=== PATIENT | male | born 1935 | race Caucasian/White ===

== ENCOUNTER 2017-09-10 19:24 | Inpatient (IN) | payer OTHER, MEDICARE ==
[2017-09-10] MEDS ORDERED: NS 1,000 ML IV ONE (19:31)
--- NOTE | 2017-09-10 20:02 | CPEKG ---
Heart Rate: 97 RR Interval: 619 P-R Interval: 164 QRSD Interval: 80 QT Interval: 352 QTC Interval: 447 P [place]: 8 QRS [place]: -14 EKG Severity - ABNORMAL ECG - EKG Impression: SINUS RHYTHM EKG Impression: LEFT ATRIAL ABNORMALITY EKG Impression: PROBABLE INFERIOR INFARCT, AGE INDETERMINATE EKG Impression: CONSIDER ANTERIOR INFARCT EKG Impression: LATERAL LEADS ARE ALSO INVOLVED Electronically Signed By: Mary Vasques 10-Sep-2017 23:37:29
[2017-09-10 20:05] LABS: PLATELET COUNT 175 10^3/uL (150-400)
--- NOTE | 2017-09-10 20:05 | EDPHY ---
H & P Time Seen by Provider: 09/10/17 19:30 HPI/ROS: HPI Progressive weakness. 81-year-old male by ambulance from his home. This patient has a history of inclusion body myositis. A call his primary care physician Larry. He has been getting progressively more weak over the last month. He is now essentially bed-bound. He has been treated with various immune suppressants and immune modulators. He denies any specific complaint other than to say that he has been getting much more weak over the last several days. He is primarily managed by Dr. Ronald Almendarez of the neurology service. ROS: Constitutional: No fever, no chills. As above. Eyes: No discharge. No changes in vision. ENT: No sore throat. No nasal congestion or rhinorrhea. Respiratory: No cough. No shortness of breath. Cardiac: No chest pain, no palpitations. Gastrointestinal: No abdominal pain, no vomiting, no diarrhea. Genitourinary: No hematuria. No dysuria or increased frequency with urination. Musculoskeletal: No back pain. No neck pain. No myalgias or arthralgias. Skin: No rashes. Neurological: No headache. No focal weakness or altered sensation. Past medical history: As above. Social history: He lives with his son in a triplex. Nonsmoker. No alcohol. Physical Exam: General Appearance: Alert, no distress. This patient is responding to questions appropriately and in full sentences. He is then but generally appears well-hydrated and well-nourished. Eyes: Pupils equal and round no pallor or injection. No lid edema, erythema or injection. ENT, Mouth: Mucous membranes are moist. The pharyngeal tissues are unremarkable. No edema or swelling. No asymmetry suggestive of abscess. No erythema or exudates. Respiratory: There are no retractions, lungs are clear to auscultation with good air movement bilaterally. Cardiovascular: Regular rate and rhythm. No murmur. Gastrointestinal: Abdomen is soft and nontender, no masses, bowel sounds normal. No focal tenderness at McBurney's point. No Belle sign. Neurological: Motor sensory function is grossly intact. Cranial nerves are normal. Skin: Warm and dry, no rashes. Musculoskeletal: Neck is supple and nontender. Extremities are symmetrical. He has 2+ pitting edema at the ankles which is symmetrical. All joints range without pain or impingement. Psychiatric: No agitation. No depression. Database: EKG: EKG time is 8:01 p.m.; EKG shows a narrow complex normal sinus rhythm with a ventricular rate of 97. Questionable inferior infarct. The OR, QRS, QT intervals are within normal limits. There are no ST-T wave changes indicative of ischemic or injury pattern. No evidence of right heart strain. Interpreted by me. Imaging: Chest x-ray AP portable; the cardiac mediastinal silhouette is unremarkable. No evidence of infiltrate or pneumothorax. No acute cardiopulmonary disease process noted. Interpreted by me. Procedures: Emergency department course: IV placed. His vital signs were reviewed. He was started on IV normal saline with 1 L to be given over the next hour. EKG obtained and reviewed by myself. 9:00 p.m., patient re-evaluated. He is resting comfortably at this time. He denies any shortness of breath. No chest pain. Results of his diagnostic workup in the emergency department were discussed with him. He is asking for dinner. He understands plan for admission and further evaluation. 9:05 p.m., discussed case with on-call hospitalist Dr. Allison Rivera. She accepts this patient for admission. She is aware of the elevated troponin. Patient's remaining emergency department course under my care has been uneventful. Patient admitted to telemetry under the care of Dr. Rivera in stable condition. Differential Diagnosis: The differential diagnosis on this patient includes but is not limited to progressive weakness secondary to chronic myositis. Thyroid disorder, renal failure, acute coronary syndrome, acute heart failure, CVA unlikely. This represents a partial list of diagnoses considered. These considerations are based on history, physical exam, past history, reassessment and diagnostic testing. Constitutional: Initial Vital Signs Temperature (C) 36.4 C 09/10/17 20:20 Heart Rate 99 09/10/17 20:20 Respiratory Rate 16 09/10/17 20:20 Blood Pressure 126/96 H 09/10/17 20:20 O2 Sat (%) 93 09/10/17 20:20 O2 Delivery Mode Room Air Allergies/Adverse Reactions: Penicillins Allergy (Unknown, Verified 09/10/17 20:19) Sulfa (Sulfonamide Antibiotics) Allergy (Verified 09/10/17 20:19) Home Medications: Medication Instructions Recorded Aspirin EC [Aspirin EC 81 mg (*)] 81 mg PO DAILY 09/10/17 Herbals/Supplements -Info Only 1 ea PO DAILY 09/10/17 Pantoprazole Sodium [Protonix 40mg 40 mg PO DAILY 09/10/17 (*)] guaiFENesin [Mucinex 600 MG (*)] 600 mg PO BID 09/10/17 predniSONE 60 mg PO DAILY 09/10/17 Medical Decision Making - Data Points Laboratory Results: Laboratory Results 09/10/17 19:58 09/10/17 19:58 Medications Given: Aspirin Buffered (Aspirin Ec) 81 mg PO DAILY DUNCAN Stop: 03/10/18 08:59 Last Admin: 09/11/17 14:32 Dose: 81 mg Guaifenesin (Mucinex) 600 mg PO BID DUNCAN Stop: 03/10/18 08:59 Last Admin: 09/11/17 20:32 Dose: 600 mg Miscellaneous Medication (Non-Formulary) 0 ea PO BID DUNCAN Stop: 03/10/18 21:59 Last Admin: 09/11/17 22:08 Dose: 15 ml Pantoprazole Sodium (Protonix) 40 mg PO DAILY DUNCAN Stop: 03/10/18 08:59 Last Admin: 09/11/17 14:31 Dose: 40 mg Prednisone (Prednisone) 60 mg PO DAILY DUNCAN Stop: 03/10/18 08:59 Last Admin: 09/11/17 14:32 Dose: 60 mg Discontinued Medications Sodium Chloride (Ns) 1,000 mls @ 0 mls/hr IV EDNOW ONE; Wide Open PRN Reason: Protocol Stop: 09/10/17 19:32 Last Admin: 09/10/17 20:51 Dose: 1,000 mls Departure - Departure Disposition: [facility] Inpatient Acute Clinical Impression: History of progressive weakness, Elevated troponin, History of myositis
[2017-09-10 20:25] LABS: CREATINE KINASE < 20 IU/L (0-224)
[2017-09-10] MEDS ORDERED: ACETAMINOPHEN 325 MG TAB PO PRN (22:15)
[2017-09-10] MEDS ORDERED: ONDANSETRON 4 MG/2 ML VIAL IVP PRN (22:15)
[2017-09-10] MEDS ORDERED: ONDANSETRON DISINTEGRATING 4 MG TAB PO PRN (22:15)
--- NOTE | 2017-09-11 00:12 | PDGENHP ---
History and Physical - Chief Complaint Weakness - History of Present Illness 81 yo M w/ inclusion body myositis present with weakness. Patient was initially diagnosed with inclusion body myositis about 1 year ago. Since, he has struggled with progressive weakness. He states that he was doing reasonably well with medicine (prednisone and other immunosuppressants) and PT until about May of this year. Since then, he has a suffered a steady decline in function. This is due mostly to proximal LE weakness. He is followed by Dr. Almendarez who suggested patient be admitted for consideration of placement and alternate therapies due to difficulty functioning at home. Patient currently denies any complaints. History Information - Allergies/Home Medication List Allergies/Adverse Reactions: Penicillins Allergy (Unknown, Verified 09/10/17 20:19) Sulfa (Sulfonamide Antibiotics) Allergy (Verified 09/10/17 20:19) Home Medications: Aspirin EC [Aspirin EC 81 mg (*)] 81 mg PO DAILY 09/10/17 [Last Taken 09/07/17] Herbals/Supplements -Info Only 1 ea PO DAILY 09/10/17 [Last Taken 09/10/17] Pantoprazole Sodium [Protonix 40mg (*)] 40 mg PO DAILY 09/10/17 [Last Taken ] guaiFENesin [Mucinex 600 MG (*)] 600 mg PO BID 09/10/17 [Last Taken 09/10/17] predniSONE 60 mg PO DAILY 09/10/17 [Last Taken 09/10/17] I have personally reviewed and updated: family history, medical history - Past Medical History Additional medical history: Inclusion body myositis. GERD - Family History Positive for: cancer - Social History Smoking Status: Never smoked Review of Systems Review of Systems: ROS: 10pt was reviewed & negative except for what was stated in HPI & below Physical Exam Physical Exam: Temp Pulse Resp BP Pulse Ox 36.6 C 78 20 145/86 H 93 09/10/17 23:38 09/10/17 23:38 09/10/17 23:38 09/10/17 23:38 09/10/17 23:38 Constitutional: no apparent distress, chronically ill appearing Eyes: PERRL, EOMI Ears, Nose, Mouth, Throat: moist mucous membranes, no oral mucosal ulcers Cardiovascular: regular rate and rhythym, no murmur, rub, or gallop, edema (2+ b /l DEMETRIA) Respiratory: no respiratory distress, no rales or rhonchi Gastrointestinal: normoactive bowel sounds, soft, non-tender abdomen Skin: warm, abrasion (scattered LE's) Musculoskeletal: other (1/5 strength proximal LE's, 4/5 distally. Upper extermity strength grossly normal.) Neurologic: AAOx3, CN II-XII Intact Psychiatric: interacting appropriately, not anxious Lab Data & Imaging Review 09/10/17 19:58 09/10/17 19:58 WBC 12.16 10^3/uL (3.80-9.50) H 09/10/17 19:58 RBC 3.55 10^6/uL (4.40-6.38) L 09/10/17 19:58 Hgb 12.6 g/dL (13.7-17.5) L 09/10/17 19:58 Hct 36.1 % (40.0-51.0) L 09/10/17 19:58 MCV 101.7 fL (81.5-99.8) H 09/10/17 19:58 MCH 35.5 pg (27.9-34.1) H 09/10/17 19:58 MCHC 34.9 g/dL (32.4-36.7) 09/10/17 19:58 RDW 15.3 % (11.5-15.2) H 09/10/17 19:58 Plt Count 175 10^3/uL (150-400) 09/10/17 19:58 MPV 9.4 fL (8.7-11.7) 09/10/17 19:58 Neut % (Auto) Not Reported 09/10/17 19:58 Lymph % (Auto) Not Reported 09/10/17 19:58 [place] % (Auto) Not Reported 09/10/17 19:58 Eos % (Auto) Not Reported 09/10/17 19:58 Baso % (Auto) Not Reported 09/10/17 19:58 Nucleat RBC Rel Count 0.2 % (0.0-0.2) 09/10/17 19:58 Absolute Neuts (auto) Not Reported 09/10/17 19:58 Absolute Lymphs (auto) Not Reported 09/10/17 19:58 Absolute Monos (auto) Not Reported 09/10/17 19:58 Absolute Eos (auto) Not Reported 09/10/17 19:58 Absolute Basos (auto) Not Reported 09/10/17 19:58 Absolute Nucleated RBC 0.02 10^3/uL (0-0.01) H 09/10/17 19:58 Immature Gran % Not Reported 09/10/17 19:58 Seg Neutrophils % 74 % 09/10/17 19:58 Band Neutrophils % 20 % 09/10/17 19:58 Lymphocytes % 2 % 09/10/17 19:58 Monocytes % 3 % 09/10/17 19:58 Myelocytes % 1 % 09/10/17 19:58 Immature Gran # Not Reported 09/10/17 19:58 Absolute Seg Neuts 9.00 10^/uL (1.70-6.50) H 09/10/17 19:58 Absolute Band Neuts 2.43 10^3/uL (0.00-0.70) H 09/10/17 19:58 Absolute Lymphocytes 0.24 10^3/uL (1.00-3.00) L 09/10/17 19:58 Absolute Monocytes 0.36 10^3/uL (0.30-0.80) 09/10/17 19:58 Absolute Myelocytes 0.12 10^3/mL (0.00-0.00) H 09/10/17 19:58 Platelet Estimate ADEQUATE (ADEQ) 09/10/17 19:58 Polychromasia 1+ H 09/10/17 19:58 Oval Macrocytes 1+ H 09/10/17 19:58 Sodium 140 mEq/L (134-144) 09/10/17 19:58 Potassium 4.0 mEq/L (3.5-5.2) 09/10/17 19:58 Chloride 105 mEq/L (97-110) 09/10/17 19:58 Carbon Dioxide 22 mEq/l (22-31) 09/10/17 19:58 Anion Gap 13 mEq/L (8-16) 09/10/17 19:58 BUN 27 mg/dL (7-23) H 09/10/17 19:58 Creatinine 0.9 mg/dL (0.7-1.3) 09/10/17 19:58 Estimated GFR > 60 09/10/17 19:58 Glucose 167 mg/dL (70-100) H 09/10/17 19:58 Calcium 8.8 mg/dL (8.5-10.4) 09/10/17 19:58 Creatine Kinase < 20 IU/L (0-224) 09/10/17 19:58 Troponin I 0.071 ng/mL (0.000-0.034) H 09/10/17 19:58 NT-Pro-B Natriuret Pep 2310 pg/mL (0-450) H 09/10/17 19:58 TSH 1.310 uIU/mL (0.465-4.680) 09/10/17 19:58 Visualized and Interpreted Chest x-ray results: Yes Chest X-Ray results: no infiltrate Assessment & Plan Assessment: 81 yo M w/ known inclusion body myositis presents with progressive weakness making it difficult to function at home; also with incidentally found troponin elevation. Plan: 1. Inclusion body myositis - Progressive worsening since May of this year despite Prednisone 60 mg qD; followed by Dr. Almendarez. He is essentially bedbound at this point and functions with the help of family and PT visits. - Neurology consult - PT/OT/RUBBER GASKET INSPECTOR TRIMMER/CM consults - Will check CK with morning labs - Continue home prednisone 2. Elevated troponin - No chest pain or symptoms to suggest ACS. I suspect this is due to great effort of coming to the hospital as patient is usually bed bound in combination with below normal GFR noting age and low muscle mass. Will trend enzymes. 3. GERD - On PPI as outpatient. Diet - Regular, RUBBER GASKET INSPECTOR TRIMMER for speech eval Ppx - SCDs Code - Full Dispo - Admit to inpatient status noting inability to function at home with severe, limiting weakness and need for max assist with all transfers.
[2017-09-11 05:20] LABS: PLATELET COUNT 138 10^3/uL (150-400)
[2017-09-11 05:45] LABS: CREATINE KINASE < 20 IU/L (0-224)
[2017-09-11] MEDS: guaiFENesin 600 MG TAB.ER PO SCH ×2 (08:56→20:32)
--- NOTE | 2017-09-11 10:12 | HOSPPROG ---
Hospitalist Progress Note Assessment/Plan: Patient is a 81-year-old male with inclusion body myositis. He presented with weakness. He was diagnosed approximately a year ago and has struggled w progressive weakness. He has done trials of treatments including prednisone and immunosuppressants. His weakness is mainly proximal lower extremity. I reviewed his care with Dr. Almendarez. The patient is hopeful to return to his home. Inpatient rehab has been ordered * progressive proximal lower extremity weakness, due to inclusion body myositis -PT OT and speech therapy to evaluate -continue home prednisone dosing -reviewed video esophagram with ST/he has weak swallow function w risk of everything/ modified diet really won't change his outcome. For now reg diet. -patient wants to go home, but this is doubtful *elevated trop w elevation in BNP -patient has no cp, but is FTT -will get an echo *bilateral lower ext edema -review echo *GERD -PPI *macrocytosis -check B12 and folate -may be contributing to his weakness *mild pancytopenia -follow *Plan: echo, labs in a.m. Subjective: Kurtis has no complaints except the weakness. Objective: Vital Signs Temp Pulse Resp BP Pulse Ox 36.5 C 78 20 165/94 H 93 09/11/17 08:57 09/11/17 08:57 09/11/17 08:57 09/11/17 08:57 09/11/17 08:57 Laboratory Results 09/11/17 03:26 09/11/17 03:26 09/10/17 09/11/17 09/12/17 05:59 05:59 05:59 Intake Total 1000 Balance 1000 - Physical Exam Constitutional: chronically ill appearing Eyes: PERRL Ears, Nose, Mouth, Throat: hearing normal Cardiovascular: regular rate and rhythym, edema (bilateral ankle areas) Respiratory: no respiratory distress, rhonchi (right mid lobe) Gastrointestinal: normoactive bowel sounds Musculoskeletal: generalized weakness Neurologic: AAOx3 Psychiatric: interacting appropriately, not anxious ICD10 Worksheet Patient Problems: Problems Problem Status Onset Elevated troponin Acute History of myositis Acute History of progressive weakness Acute
[2017-09-11] MEDS: predniSONE 20 MG TAB PO SCH ×2 (11:30→14:32)
[2017-09-11] MEDS: PANTOPRAZOLE SODIUM 40 MG TAB PO SCH ×2 (11:30→14:31)
[2017-09-11] MEDS: ASPIRIN EC 81 MG TAB PO SCH ×2 (11:30→14:32)
--- NOTE | 2017-09-11 12:10 | PDMN ---
Medical Necessity Medical necessity: Est los >2 mn for eval/tx of progressive worsening inclusion body myositis, elevated troponin, inability to function at home with severe, limiting weakness & need for max assist w/all transfers; per H&P 09/10/17
--- NOTE | 2017-09-11 16:49 | ASMTCMCOM ---
CM Note CM Note Notes: Pt lives in a home w/son, has a progressive neurological condition. CM waiting for PT/COMPOUNDING SCALER evals. Date Signed: 09/11/2017 04:49 PM Electronically Signed By:Leslee Wells RN
--- NOTE | 2017-09-11 16:49 | ASMTCMCOM ---
CM Note CM Note Notes: Pt lives in a home w/son, has a progressive neurological condition. CM waiting for PT/CONCRETE BLOCK MOLDER evals. Date Signed: 09/11/2017 04:49 PM Electronically Signed By:Leslee Wells RN
--- NOTE | 2017-09-11 16:49 | ASMTCMCOM ---
CM Note CM Note Notes: Pt lives in a home w/son, has a progressive neurological condition. CM waiting for PT/MOUTHPIECE MAKER evals. Date Signed: 09/11/2017 04:49 PM Electronically Signed By:Leslee Wells RN
--- NOTE | 2017-09-11 16:56 | ECHO ---
[email or web address] [address] [address] Main: [phone] Fax: Transthoracic Echocardiogram Name: NIKOLAY SOARES MR#: [id number] Study Date: 09/11/2017 Study Time: 03:14 PM Date of : 1935 Age: 81 year(s) Height: 188 cm (74 in.) Weight: 58.06 kg (128 lb.) BSA: 1.8 m2 Gender: Male Examination: Echo Indication: Lower Extremity Edema, Eval LV Fx Image Quality: Contrast: Requested by: Viri Serna BP: 128 mmHg/82 mmHg Heart Rate: Rhythm: Tachycardia Indication: Lower Extremity Edema, Eval LV Fx Procedure Staff Line Haul Truck Driver: Alex Vu Reading Physician: Wili Ge Requesting Provider: Conclusions: Normal size left ventricle. Global hypercontractility of the left ventricle. EF is 72 %. No regional wall motion abnormality. Diastolic dysfunction is present. . Normal appearing valvular structures with normal function. Measurements: Chambers Valvular Assessment AV/MV Valvular Assessment TV/PV Normal Normal Normal Name Value Range Name Value Range Name Value Range Ao Barb (MM): 3.2 cm (2.2 cm-3.7 AV Vmax: 1.15 m/s (1 m/s-1.7 PV Vmax: 0.80 m/s (0.6 m/s-0.9 cm) m/s) m/s) IVSd (2D): 0.9 cm (0.6 cm-1.1 AV maxP mmHg ( - ) PV PGmax: 3 mmHg ( - ) cm) LVOT Vmax: 0.87 m/s (0.7 m/s-1.1 LVDd (2D): 2.6 cm (4.2 cm-5.9 m/s) cm) MV E Vmax: 1.00 m/s ( - ) LVDs (2D): 1.6 cm (2.1 cm-4 MV A Vmax: 0.56 m/s ( - ) cm) MV E/A: 1.79 ( - ) LVPWd (2D): 0.9 cm (0.6 cm-1 cm) LVEF (2D): 72 (>=54 %) Continued Measurements: Chambers Valvular Assessment AV/MV Name Value Name Value LADs Lon.7 cm MV E/E' Septal: 19.30 LA Area: 11.8 cm2 MV E/E' Lateral: 12.30 Patient: NIKOLAY SOARES Study Date: 09/11/2017 Page 1 of 2 03:14 PM Findings: Left Ventricle: Normal size left ventricle. No LV hypertrophy. Global hypercontractility of the left ventricle. EF is 72 %. No regional wall motion abnormality. Diastolic dysfunction is present. . Right Ventricle: Normal size right ventricle. Left Atrium: The left atrium is normal in size. Right Atrium: The right atrium is normal in size. Mitral Valve: The mitral valve is normal in appearance and function. There is no mitral valve regurgitation. No mitral stenosis is present. Aortic Valve: The aortic valve is normal in appearance and function. The aortic valve is tri-leaflet. Tricuspid Valve: The tricuspid valve is normal in appearance and function. Pulmonic Valve: The pulmonic valve is normal in appearance and function. Aorta: The aorta is normal. Pericardium: No pericardial effusion. (No Signature Object) Patient: NIKOLAY SOARES Study Date: 09/11/2017 Page 2 of 2 03:14 PM [id number]
--- NOTE | 2017-09-11 16:56 | ECHO ---
[email or web address] [address] [address] Main: [phone] Fax: Transthoracic Echocardiogram Name: NIKOLAY SOARES MR#: [id number] Study Date: 09/11/2017 Study Time: 03:14 PM Date of : 1935 Age: 81 year(s) Height: 188 cm (74 in.) Weight: 58.06 kg (128 lb.) BSA: 1.8 m2 Gender: Male Examination: Echo Indication: Lower Extremity Edema, Eval LV Fx Image Quality: Contrast: Requested by: Viri Serna BP: 128 mmHg/82 mmHg Heart Rate: Rhythm: Tachycardia Indication: Lower Extremity Edema, Eval LV Fx Procedure Staff Regulatory Coordinator: Alex Vu Reading Physician: Wili Ge Requesting Provider: Conclusions: Normal size left ventricle. Global hypercontractility of the left ventricle. EF is 72 %. No regional wall motion abnormality. Diastolic dysfunction is present. . Normal appearing valvular structures with normal function. Measurements: Chambers Valvular Assessment AV/MV Valvular Assessment TV/PV Normal Normal Normal Name Value Range Name Value Range Name Value Range Ao Barb (MM): 3.2 cm (2.2 cm-3.7 AV Vmax: 1.15 m/s (1 m/s-1.7 PV Vmax: 0.80 m/s (0.6 m/s-0.9 cm) m/s) m/s) IVSd (2D): 0.9 cm (0.6 cm-1.1 AV maxP mmHg ( - ) PV PGmax: 3 mmHg ( - ) cm) LVOT Vmax: 0.87 m/s (0.7 m/s-1.1 LVDd (2D): 2.6 cm (4.2 cm-5.9 m/s) cm) MV E Vmax: 1.00 m/s ( - ) LVDs (2D): 1.6 cm (2.1 cm-4 MV A Vmax: 0.56 m/s ( - ) cm) MV E/A: 1.79 ( - ) LVPWd (2D): 0.9 cm (0.6 cm-1 cm) LVEF (2D): 72 (>=54 %) Continued Measurements: Chambers Valvular Assessment AV/MV Name Value Name Value LADs Lon.7 cm MV E/E' Septal: 19.30 LA Area: 11.8 cm2 MV E/E' Lateral: 12.30 Patient: NIKOLAY SOARES Study Date: 09/11/2017 Page 1 of 2 03:14 PM Findings: Left Ventricle: Normal size left ventricle. No LV hypertrophy. Global hypercontractility of the left ventricle. EF is 72 %. No regional wall motion abnormality. Diastolic dysfunction is present. . Right Ventricle: Normal size right ventricle. Left Atrium: The left atrium is normal in size. Right Atrium: The right atrium is normal in size. Mitral Valve: The mitral valve is normal in appearance and function. There is no mitral valve regurgitation. No mitral stenosis is present. Aortic Valve: The aortic valve is normal in appearance and function. The aortic valve is tri-leaflet. Tricuspid Valve: The tricuspid valve is normal in appearance and function. Pulmonic Valve: The pulmonic valve is normal in appearance and function. Aorta: The aorta is normal. Pericardium: No pericardial effusion. (No Signature Object) Patient: NIKOLAY SOARES Study Date: 09/11/2017 Page 2 of 2 03:14 PM [id number]
--- NOTE | 2017-09-11 16:56 | ECHO ---
[email or web address] [address] [address] Main: [phone] Fax: Transthoracic Echocardiogram Name: NIKOLAY SOARES MR#: [id number] Study Date: 09/11/2017 Study Time: 03:14 PM Date of : 1935 Age: 81 year(s) Height: 188 cm (74 in.) Weight: 58.06 kg (128 lb.) BSA: 1.8 m2 Gender: Male Examination: Echo Indication: Lower Extremity Edema, Eval LV Fx Image Quality: Contrast: Requested by: Viri Serna BP: 128 mmHg/82 mmHg Heart Rate: Rhythm: Tachycardia Indication: Lower Extremity Edema, Eval LV Fx Procedure Staff Surgical Scrub Technologist: Alex Vu Reading Physician: Wili Ge Requesting Provider: Conclusions: Normal size left ventricle. Global hypercontractility of the left ventricle. EF is 72 %. No regional wall motion abnormality. Diastolic dysfunction is present. . Normal appearing valvular structures with normal function. Measurements: Chambers Valvular Assessment AV/MV Valvular Assessment TV/PV Normal Normal Normal Name Value Range Name Value Range Name Value Range Ao Barb (MM): 3.2 cm (2.2 cm-3.7 AV Vmax: 1.15 m/s (1 m/s-1.7 PV Vmax: 0.80 m/s (0.6 m/s-0.9 cm) m/s) m/s) IVSd (2D): 0.9 cm (0.6 cm-1.1 AV maxP mmHg ( - ) PV PGmax: 3 mmHg ( - ) cm) LVOT Vmax: 0.87 m/s (0.7 m/s-1.1 LVDd (2D): 2.6 cm (4.2 cm-5.9 m/s) cm) MV E Vmax: 1.00 m/s ( - ) LVDs (2D): 1.6 cm (2.1 cm-4 MV A Vmax: 0.56 m/s ( - ) cm) MV E/A: 1.79 ( - ) LVPWd (2D): 0.9 cm (0.6 cm-1 cm) LVEF (2D): 72 (>=54 %) Continued Measurements: Chambers Valvular Assessment AV/MV Name Value Name Value LADs Lon.7 cm MV E/E' Septal: 19.30 LA Area: 11.8 cm2 MV E/E' Lateral: 12.30 Patient: NIKOLAY SOARES Study Date: 09/11/2017 Page 1 of 2 03:14 PM Findings: Left Ventricle: Normal size left ventricle. No LV hypertrophy. Global hypercontractility of the left ventricle. EF is 72 %. No regional wall motion abnormality. Diastolic dysfunction is present. . Right Ventricle: Normal size right ventricle. Left Atrium: The left atrium is normal in size. Right Atrium: The right atrium is normal in size. Mitral Valve: The mitral valve is normal in appearance and function. There is no mitral valve regurgitation. No mitral stenosis is present. Aortic Valve: The aortic valve is normal in appearance and function. The aortic valve is tri-leaflet. Tricuspid Valve: The tricuspid valve is normal in appearance and function. Pulmonic Valve: The pulmonic valve is normal in appearance and function. Aorta: The aorta is normal. Pericardium: No pericardial effusion. (No Signature Object) Patient: NIKOLAY SOARES Study Date: 09/11/2017 Page 2 of 2 03:14 PM [id number]
--- NOTE | 2017-09-11 17:29 | GCON ---
[f rep st] CONSULTATION REFERRING PHYSICIAN: Niall Asencio MD The patient is a 81-year-old gentleman who I have known since I first met him for a neurologic consul tation in August 2013. At that time, he was being evaluated with a 2nd opinion regarding possible m otor neuron disease. At that time of the evaluation, I found that he had some atrophy in the proxima l muscles of the shoulder girdle and the thighs. Most of the strength was in the 4/5 range. He had good distal weakness in the lower extremities. He had a hard time arising from a seated position. 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 In October of 2016, I had a conversation with Dr. Valdez at the [facility], who confirmed the diagnosis when we discussed the biopsy. I started the carlito ribera on high-dose prednisone 60 mg a day and since then we have continued to use steroids to see if t hey would help him. When he had subsequent followup evaluation in December of 2016, he had been on t reatment for about 10 weeks and definitely perceived that when we lowered the dose to 40 mg he was a bit weaker. It was not clear if there was actual improvement in the legs, but he thought his upper e xtremities were better. When I saw him in May of this year, he was on high-dose prednisone and we w ere going to go back to some Imuran to see if that might help to help prevent the long-term steroid c onsequences, but still try to suppress the immune system affectively for a condition that generally d oes not respond to any therapy. When I saw him in June, he had been hospitalized for pneumonia at [facility]. He was significantly weaker and really struggling to get up from a seated position. He had had a fall. He was not having shortness of breath. 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 When we tried the ag gressive treatment with Imuran and prednisone, he felt like it actually set him back a bit, so we hav e just gone with steroid and each time I have tried to lower the dose he has felt very concerned abou t losing some strength, particularly in the upper extremities. Most of the time my objective measure s in the office have not shown profound differences, but he certainly has a subjective experience of feeling better on the high-dose prednisone as much as 80 mg a day. In the last few months, there has really been an ongoing decline to the point that he really cannot manage adequately at home from the therapy standpoint. It was his therapist who felt he needed hospitalization or at least assessment for other strategies to manage his condition and determine whether anything else could be offered. Miguelito dunnnasra spoke to Dr. Juarez, who then spoke to me, and we agree that hospitalization to consider any alexand[place] atment changes and possible inpatient rehab strategies be would be worthwhile. He is having some trouble with his chewing and swallowing and had some swallow evaluation showing imp airments but not evidence that changing the type of diet would be very successful. He has a little b it of shortness of breath at times. He certainly feels profoundly weak throughout his body. On examination today, he is quite weak and speaking with a mild dysarthria. He is pocketing food in the right cheek. He is having an intermittent cough or clearing of his throat about every 15-30 seco nds. He looks quite debilitated and is cushingoid in his appearance in the face and has somewhat cammie matous distal lower extremities with erythema. The weakness is most prominent in the long finger fle xors bilaterally where there is very minimal resistance. No more than 2 to 3/5 strength with the renee g finger flexors. Proximal upper extremity strength about 3 to 4/5, and proximal lower extremity str ength 2/5 and more in the 4/5 range for distal strength in the lower extremities. Reflexes 1+. No f ocal sensory loss. 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 The use of immunotherapy is generally not effective, but we have been treating him now for about 10 months with high-dose prednisone and getting subjective improvements and maybe objective improvements in the upper extremities at times with very little change in the lower extremity function. Addition of Imuran was discontinued because of his perception that it might have made him weaker, but I do no t think that was the cause of increasing weakness. He is now on 60 mg a day of prednisone and has pr ominent cushingoid appearance. When I have spoken with him in detail in the office, we have had long discussions about the pros and cons of prednisone therapy including all of the complications and he fully understands that but has wanted to stay on the high dose for at least a little bit longer to se e if we can maintain control of strength. Unfortunately, he is continuing to lose ground and there i s not any evidence that any other immunosuppressive regimens would be effective or appropriate. It w ould be appropriate to have a rehab assessment to see if he can stabilize enough to safely return maged e, which is his strong preference versus a senior living facility. If the dysarthria and dysphagia problems continue as expected, he will remain at high risk for developing aspiration pneumonia and c omplications of that. The long-term prognosis is poor and his current state of severe disability jamie l probably not be reversible, but perhaps stabilized for a little while longer. Predicting anything beyond that is difficult, but he is at risk for fatal complications of the disease from now forward g iven the degree of weakness and the swallowing problems. He grasps these concepts perfectly well, bu t certainly wants to try to do everything he can to be comfortable and achieve as much control of his life situation as he safely can. I informed the case aide on the floor of what is happening and she will work with him and we will be asking for rehab consultation. I discussed this with Viri serrato, who is the hospitalist covering his case as well. Total unit time of 55 minutes with greater than 50% of the time counseling and coordination of care w ith the patient. /[id number]/MODL
[2017-09-11] MEDS: CHOLECALCIFEROL PO SCH (22:08)
[2017-09-11] MEDS: [UNRECOGNIZED DRUG - OTHER] PO SCH (22:08)
[2017-09-11] MEDS: MAGNESIUM CITRATE PO SCH (22:08)
[2017-09-12] MEDS: ASPIRIN EC 81 MG TAB PO SCH (09:50)
[2017-09-12] MEDS: PANTOPRAZOLE SODIUM 40 MG TAB PO SCH (09:51)
[2017-09-12] MEDS: predniSONE 20 MG TAB PO SCH (09:52)
[2017-09-12] MEDS: guaiFENesin 600 MG TAB.ER PO SCH ×2 (09:59→19:47)
[2017-09-12] MEDS: CHOLECALCIFEROL PO SCH ×2 (10:00→19:49)
[2017-09-12] MEDS: MAGNESIUM CITRATE PO SCH ×2 (10:00→19:49)
[2017-09-12] MEDS: [UNRECOGNIZED DRUG - OTHER] PO SCH ×2 (10:00→19:49)
--- NOTE | 2017-09-12 12:48 | ASMTCMCOM ---
CM Note CM Note Notes: Met with patient regarding dc to rehab before going home. Patient has [employer] and needs needs assistance for ADLs but states was until recently, walking w/walker, driving to [facility] in [place] and exercising. His son lives with him and as he states, is a great assistance to him. Unfortunately he had a bad experience with a home health aid and is very afraid to work with therapists, fearing he will fall. CM advised to use some coping mechanisms such as deep breaths and having 2 people to hold him during therapy sessions. Also discussed with pt the importance of the therapists being able to assess his progress so rehab can review the referral. Pt was receptive and willing, CM will send referral to [facility] rehab. Date Signed: 09/12/2017 12:48 PM Electronically Signed By:Leslee Wells RN
--- NOTE | 2017-09-12 12:48 | ASMTCMCOM ---
CM Note CM Note Notes: Met with patient regarding dc to rehab before going home. Patient has [employer] and needs needs assistance for ADLs but states was until recently, walking w/walker, driving to [facility] in [place] and exercising. His son lives with him and as he states, is a great assistance to him. Unfortunately he had a bad experience with a home health aid and is very afraid to work with therapists, fearing he will fall. CM advised to use some coping mechanisms such as deep breaths and having 2 people to hold him during therapy sessions. Also discussed with pt the importance of the therapists being able to assess his progress so rehab can review the referral. Pt was receptive and willing, CM will send referral to [facility] rehab. Date Signed: 09/12/2017 12:48 PM Electronically Signed By:Leslee Wells RN
--- NOTE | 2017-09-12 12:48 | ASMTCMCOM ---
CM Note CM Note Notes: Met with patient regarding dc to rehab before going home. Patient has [employer] and needs needs assistance for ADLs but states was until recently, walking w/walker, driving to [facility] in [place] and exercising. His son lives with him and as he states, is a great assistance to him. Unfortunately he had a bad experience with a home health aid and is very afraid to work with therapists, fearing he will fall. CM advised to use some coping mechanisms such as deep breaths and having 2 people to hold him during therapy sessions. Also discussed with pt the importance of the therapists being able to assess his progress so rehab can review the referral. Pt was receptive and willing, CM will send referral to [facility] rehab. Date Signed: 09/12/2017 12:48 PM Electronically Signed By:Leslee Wells RN
--- NOTE | 2017-09-12 14:02 | HOSPPROG ---
Hospitalist Progress Note Assessment/Plan: Patient is a 81-year-old male with inclusion body myositis. He presented with weakness. He was diagnosed approximately a year ago and has struggled w progressive weakness. He has done trials of treatments including prednisone and immunosuppressants. His weakness is mainly proximal lower extremity. I reviewed his care with Dr. Almendarez. The patient is hopeful to return to his home. First encounter, chart reviewed. * progressive proximal lower extremity weakness, due to inclusion body myositis -PT OT and speech therapy to evaluate, pt refusing PT due to traumatic past experience -continue home prednisone dosing -reviewed video esophagram/he has weak swallow function w risk of everything/ modified diet really won't change his outcome. For now reg diet. -patient wants to go home, but this is doubtful *elevated trop w elevation in BNP -patient has no cp, but is FTT -ECHO stable *bilateral lower ext edema -chronic, likely related to weakness and poor mobility *GERD -PPI *macrocytosis -B12 and folate normal *mild pancytopenia -follow *Plan: await PT/OT eval inpat rehab consult will likely need SNF vs palliative Subjective: Lots of concnerns. Anxious about therapy. No pain. Objective: Vital Signs Temp Pulse Resp BP Pulse Ox 36.3 C 98 16 122/84 H 92 09/12/17 11:47 09/12/17 11:47 09/12/17 11:47 09/12/17 11:47 09/12/17 11:47 Laboratory Results 09/11/17 03:26 09/11/17 03:26 09/11/17 09/12/17 09/13/17 05:59 05:59 05:59 Intake Total 1000 Balance 1000 - Physical Exam Constitutional: appears nourished, not in pain, chronically ill appearing Eyes: PERRL, anicteric sclera, EOMI Ears, Nose, Mouth, Throat: moist mucous membranes, hearing normal, ears appear normal Cardiovascular: regular rate and rhythym, No JVD, No edema Respiratory: no respiratory distress, no rales or rhonchi, reduced air movement Gastrointestinal: No tenderness, No ascites, No distension Skin: warm, normal color, No mottled Musculoskeletal: joint tenderness, generalized weakness, No normal joint ROM Neurologic: AAOx3 Psychiatric: thought process linear, anxious, poor insight, poor judgement ICD10 Worksheet Patient Problems: Problems Problem Status Onset History of progressive weakness Acute Elevated troponin Acute History of myositis Acute
--- NOTE | 2017-09-12 15:31 | NEUROPROG ---
Assessment: Total unit time today was 30 minutes with greater than 50% of the time counseling and coordination of care. The patient is in a terribly difficult situation with the chronic and progressive neurologic disease with no effective therapy and limited benefits from prednisone. He will be working toward rehabilitation options with her team and continue on the steroid for now but may eventually continue to taper this given the lack of clear benefit. Subjective: Patient does not feel that he is significantly different in the last 12 hours. He is very anxious about his future and how to improve. Objective: Vital Signs Temp Pulse Resp BP Pulse Ox 36.3 C 98 16 122/84 H 92 09/12/17 11:47 09/12/17 11:47 09/12/17 11:47 09/12/17 11:47 09/12/17 11:47 Laboratory Results 09/11/17 03:26 09/11/17 03:26 09/11/17 09/12/17 09/13/17 05:59 05:59 05:59 Intake Total 1000 Balance 1000 The patient is mostly depressed and anxious but we had a good conversation about the challenges we are facing with his condition. His degree of weakness is profound and unchanged since admission. Allergies/Adverse Reactions: Penicillins Allergy (Unknown, Verified 09/10/17 20:19) Sulfa (Sulfonamide Antibiotics) Allergy (Verified 09/10/17 20:19)
[2017-09-12] MEDS: PYRIDOSTIGMINE BROMIDE 60 MG TAB TUBE SCH ×2 (17:54→23:43)
[2017-09-13] MEDS: PYRIDOSTIGMINE BROMIDE 60 MG TAB TUBE SCH (06:16)
--- NOTE | 2017-09-13 08:46 | NEUROPROG ---
Assessment: Total unit time of 30 min. with greater than 50% time in counseling face to face. His condition is stable since admission but significantly declining over the last several months consistent with the natural history of the disease. I stopped the pyridostigmine because I erroneously wrote for this on him yesterday when meant for another patient. It would not be helpful for his condition. PT, OT, ST and rehab options are all in the process of being established. He is eager to try as much therapy as he can tolerate. Subjective: Pt is noting prominent cough and some challenges clearing his throat. He does not know about clear change in strength. Objective: Vital Signs Temp Pulse Resp BP Pulse Ox 36.4 C 75 18 154/82 H 91 L 09/13/17 07:50 09/13/17 07:50 09/13/17 07:50 09/13/17 07:50 09/13/17 07:50 Laboratory Results 09/11/17 03:26 09/11/17 03:26 09/12/17 09/13/17 09/14/17 05:59 05:59 05:59 Intake Total 120 Output Total 650 Balance -530 Awake and alert with clear sensorium. He does have prominent upper airway congestion and rhonchi. He is mildly dysarthric. Weakness remains 3-4/5 proximally and severe long finger flexor weakness. Allergies/Adverse Reactions: Penicillins Allergy (Unknown, Verified 09/10/17 20:19) Sulfa (Sulfonamide Antibiotics) Allergy (Verified 09/10/17 20:19)
[2017-09-13] MEDS: PANTOPRAZOLE SODIUM 40 MG TAB PO SCH (10:19)
[2017-09-13] MEDS: guaiFENesin 600 MG TAB.ER PO SCH (10:19)
[2017-09-13] MEDS: ASPIRIN EC 81 MG TAB PO SCH (10:19)
[2017-09-13] MEDS: MAGNESIUM CITRATE PO SCH ×2 (10:19→20:20)
[2017-09-13] MEDS: ENOXAPARIN 40 MG/0.4 ML SYR SC SCH (10:19)
[2017-09-13] MEDS: [UNRECOGNIZED DRUG - OTHER] PO SCH ×2 (10:19→20:20)
[2017-09-13] MEDS: CHOLECALCIFEROL PO SCH ×2 (10:19→20:20)
[2017-09-13] MEDS: predniSONE 20 MG TAB PO SCH (10:19)
--- NOTE | 2017-09-13 13:56 | HOSPPROG ---
Hospitalist Progress Note Assessment/Plan: Patient is a 81-year-old male with inclusion body myositis. He presented with weakness. He was diagnosed approximately a year ago and has struggled w progressive weakness. He has done trials of treatments including prednisone and immunosuppressants. His weakness is mainly proximal lower extremity. * progressive proximal lower extremity weakness, due to inclusion body myositis -PT OT and speech therapy to evaluate -continue home prednisone dosing -reviewed video esophagram/he has weak swallow function w risk of everything/ modified diet really won't change his outcome. For now reg diet. *elevated trop w elevation in BNP -patient has no cp, but is FTT -ECHO stable *bilateral lower ext edema -chronic, likely related to weakness and poor mobility *GERD -PPI *macrocytosis -B12 and folate normal *mild pancytopenia -follow *Plan: [facility] in am if stable Subjective: Up in chair. Pleased with progress. Objective: Vital Signs Temp Pulse Resp BP Pulse Ox 36.7 C 100 18 101/77 94 09/13/17 11:51 09/13/17 11:51 09/13/17 11:51 09/13/17 11:51 09/13/17 11:51 Laboratory Results 09/11/17 03:26 09/11/17 03:26 09/12/17 09/13/17 09/14/17 05:59 05:59 05:59 Intake Total 120 Output Total 650 Balance -530 - Physical Exam Constitutional: appears nourished, chronically ill appearing Eyes: PERRL, anicteric sclera Ears, Nose, Mouth, Throat: moist mucous membranes, hearing normal Cardiovascular: regular rate and rhythym, No JVD Respiratory: no respiratory distress, reduced air movement Gastrointestinal: normoactive bowel sounds, No ascites Skin: warm, normal color Musculoskeletal: no joint effusions, generalized weakness Neurologic: AAOx3 Psychiatric: interacting appropriately, not encephalopathic, poor insight ICD10 Worksheet Patient Problems: Problems Problem Status Onset History of progressive weakness Acute Elevated troponin Acute History of myositis Acute
--- NOTE | 2017-09-13 14:49 | ASMTCMCOM ---
CM Note CM Note Notes: Pt declined by [facility] In rehab, referral sent to [facility] today. They have confirmed receipt, will run benefits and review, DOREEN w/f. Date Signed: 09/13/2017 02:48 PM Electronically Signed By:Leslee Wells RN
--- NOTE | 2017-09-13 14:49 | ASMTCMCOM ---
CM Note CM Note Notes: Pt declined by [facility] In rehab, referral sent to [facility] today. They have confirmed receipt, will run benefits and review, DOREEN w/f. Date Signed: 09/13/2017 02:48 PM Electronically Signed By:Leslee Wells RN
--- NOTE | 2017-09-13 14:49 | ASMTCMCOM ---
CM Note CM Note Notes: Pt declined by [facility] In rehab, referral sent to [facility] today. They have confirmed receipt, will run benefits and review, DOREEN w/f. Date Signed: 09/13/2017 02:48 PM Electronically Signed By:Leslee Wells RN
[2017-09-13] MEDS: guaiFENesin 200 MG/10 ML UDL PO SCH (20:20)
[2017-09-14 04:18] VITALS: O2SAT 93
[2017-09-14] MEDS: guaiFENesin 200 MG/10 ML UDL PO SCH ×2 (05:23→14:10)
[2017-09-14] MEDS: PANTOPRAZOLE SODIUM 40 MG TAB PO SCH (07:59)
[2017-09-14] MEDS: ASPIRIN EC 81 MG TAB PO SCH (07:59)
[2017-09-14] MEDS: ENOXAPARIN 40 MG/0.4 ML SYR SC SCH (08:00)
[2017-09-14] MEDS: predniSONE 20 MG TAB PO SCH ×2 (08:16→09:31)
[2017-09-14 08:42] VITALS: BP 108/87; PULSE 92; RESP 14; TEMP 98.1
--- NOTE | 2017-09-14 11:24 | NEUROPROG ---
Assessment: Total unit time of 30 min. with greater than 50% time in counseling face to face. His condition is stable since admission but significantly declining over the last several months consistent with the natural history of the disease. I stopped the pyridostigmine because I erroneously wrote for this on him yesterday when meant for another patient. It would not be helpful for his condition. PT, OT, ST and rehab options are all in the process of being established. He is eager to try as much therapy as he can tolerate. Total unit time 30 minutes. Subjective: Inclusion body myositis with advancing weakness and high risk for aspiration. He does not want any resuscitation efforts, so I will make him DNR. He is not interested in PEG tube. Ready to go to rehab once accepted. We will continue the prednisone 60mg per day. Objective: Vital Signs Temp Pulse Resp BP Pulse Ox 36.7 C 92 14 108/87 H 93 09/14/17 08:00 09/14/17 08:00 09/14/17 08:00 09/14/17 08:00 09/14/17 08:00 Laboratory Results 09/11/17 03:26 09/11/17 03:26 09/13/17 09/14/17 09/15/17 05:59 05:59 05:59 Intake Total 120 480 Output Total 650 200 Balance -530 280 Allergies/Adverse Reactions: Penicillins Allergy (Unknown, Verified 09/10/17 20:19) Sulfa (Sulfonamide Antibiotics) Allergy (Verified 09/10/17 20:19)
--- NOTE | 2017-09-14 11:39 | PDIAF ---
- Diagnosis Diagnosis: Weakness Code Status: Do Not Resuscitate - Medication Management Discharge Medications: Medications to Continue on Transfer Aspirin EC [Aspirin EC 81 mg (*)] 81 mg PO DAILY 09/10/17 [Last Taken 09/07/17] Herbals/Supplements -Info Only 1 ea PO DAILY 09/10/17 [Last Taken 09/10/17] Pantoprazole Sodium [Protonix 40mg (*)] 40 mg PO DAILY 09/10/17 [Last Taken ] guaiFENesin [Mucinex 600 MG (*)] 600 mg PO BID 09/10/17 [Last Taken 09/10/17] predniSONE 60 mg PO DAILY 09/10/17 [Last Taken 09/10/17] Acetaminophen [Tylenol 325mg (*)] 650 mg PO Q4HRS PRN tab 09/14/17 [Last Taken Unknown] Discharge Medications: Refer to the Discharge Home Medication list for PRN reason. PICC Care - Routine: N/A - Orders Services needed: Registered Nurse, Physical Therapy, Occupational Therapy, Speech Language Pathologist Diet Recommendation: no restrictions on diet Diet Texture: Regular Texture Diet, Thin Liquids, Meds Whole w/Liquids - Follow Up Care Current Providers and Referrals: NAE ACOSTA [Other] - As per Instructions
--- NOTE | 2017-09-14 12:24 | ASDISCHSUM ---
Discharge Information Plan Status:SNF Medically Cleared to Leave:09/14/2017 Discharge Date:09/14/2017 CM D/C Disposition:[facility]way Facility ADT D/C Disposition:Halfway Facility Projected Discharge Date:09/15/2017 11:00 AM Transportation at D/C:ALS/BLS Discharge Delay Reason: Follow-Up Date:09/15/2017 11:00 AM Discharge Slot: Final Diagnosis: Placement Information Referral Type:*[facility]NF Referral ID:[id number] Provider Name:[facility] Address 1:[address] Address 2: City:[place] Selection Factors: State:[place] Referral Type:*[facility]/SNF Referral ID:[id number] Provider Name: Address 1: Phone Number: Address 2: Fax Number: City: Selection Factors: State: Patient Contact Information Contact Name:Concha Relationship:Son Address: Work Phone: City: [facility] Phone: State/Zip Code: Email: Financial Information Financial Class: Primary Plan Desc:MEDICARE INPATIENT Primary Plan Number:[id number] Secondary Plan Desc:[employer]/MDR SUPPLEMENT Secondary Plan Number:[id number] Assessment Information [facility] CM Progress Note CM Note CM Note Notes: Pt lives in a home w/son, has a progressive neurological condition. CM waiting for PT/MEDICAL LABORATORY SPECIALIST trudy. Date Signed: 09/11/2017 04:49 PM Electronically Signed By:Leslee Wells RN [facility] CM Progress Note CM Note CM Note Notes: Met with patient regarding dc to rehab before going home. Patient has [employer] and needs needs assistance for ADLs but states was until recently, walking w/walker, driving to [facility] in [place] and exercising. His son lives with him and as he states, is a great assistance to him. Unfortunately he had a bad experience with a home health aid and is very afraid to work with therapists, fearing he will fall. CM advised to use some coping mechanisms such as deep breaths and having 2 people to hold him during therapy sessions. Also discussed with pt the importance of the therapists being able to assess his progress so rehab can review the referral. Pt was receptive and willing, CM will send referral to [facility]. Date Signed: 09/12/2017 12:48 PM Electronically Signed By:Leslee Wells RN [facility] DOREEN Progress Note CM Note CM Note Notes: Pt declined by [facility] In rehab, referral sent to [facility] today. They have confirmed receipt, will run benefits and review, CM w/f. Date Signed: 09/13/2017 02:48 PM Electronically Signed By:Leslee Wells RN Intervention Information
--- NOTE | 2017-09-14 12:24 | ASDISCHSUM ---
Discharge Information Plan Status:SNF Medically Cleared to Leave:09/14/2017 Discharge Date:09/14/2017 CM D/C Disposition:Fdc Facility ADT D/C Disposition:Fdc Facility Projected Discharge Date:09/15/2017 11:00 AM Transportation at D/C:ALS/BLS Discharge Delay Reason: Follow-Up Date:09/15/2017 11:00 AM Discharge Slot: Final Diagnosis: Placement Information Referral Type:*Chcf/SNF Referral ID:[id number] Provider Name:[facility] Address 1:[address] Address 2: City:[place] Selection Factors: State:[place] Referral Type:*Chcf/SNF Referral ID:[id number] Provider Name: Address 1: Phone Number: Address 2: Fax Number: City: Selection Factors: State: Patient Contact Information Contact Name:Concha Relationship:Son Address: Work Phone: City: [facility] Phone: State/Zip Code: Email: Financial Information Financial Class: Primary Plan Desc:MEDICARE INPATIENT Primary Plan Number:[id number] Secondary Plan Desc:[employer]ARP/MDR SUPPLEMENT Secondary Plan Number:[id number] Assessment Information [facility] CM Progress Note CM Note CM Note Notes: Pt lives in a home w/son, has a progressive neurological condition. CM waiting for PT/[employer] trudy. Date Signed: 09/11/2017 04:49 PM Electronically Signed By:Leslee Wells RN [facility] CM Progress Note CM Note CM Note Notes: Met with patient regarding dc to rehab before going home. Patient has [employer] and needs needs assistance for ADLs but states was until recently, walking w/walker, driving to [facility] in [place] and exercising. His son lives with him and as he states, is a great assistance to him. Unfortunately he had a bad experience with a home health aid and is very afraid to work with therapists, fearing he will fall. CM advised to use some coping mechanisms such as deep breaths and having 2 people to hold him during therapy sessions. Also discussed with pt the importance of the therapists being able to assess his progress so rehab can review the referral. Pt was receptive and willing, CM will send referral to [facility]. Date Signed: 09/12/2017 12:48 PM Electronically Signed By:Leslee Wells RN [facility] Progress Note CM Note CM Note Notes: Pt declined by [facility] In rehab, referral sent to [facility] today. They have confirmed receipt, will run benefits and review, CM w/f. Date Signed: 09/13/2017 02:48 PM Electronically Signed By:Leslee Wells RN Intervention Information
--- NOTE | 2017-09-14 12:24 | ASDISCHSUM ---
Discharge Information Plan Status:SNF Medically Cleared to Leave:09/14/2017 Discharge Date:09/14/2017 CM D/C Disposition:[facility] Facility ADT D/C Disposition:[facility] Facility Projected Discharge Date:09/15/2017 11:00 AM Transportation at D/C:ALS/BLS Discharge Delay Reason: Follow-Up Date:09/15/2017 11:00 AM Discharge Slot: Final Diagnosis: Placement Information Referral Type:*Correction/SNF Referral ID:[id number] Provider Name:[facility] Address 1:[address] Address 2: City:[place] Selection Factors: State:[place] Referral Type:*Correction/SNF Referral ID:[id number] Provider Name: Address 1: Phone Number: Address 2: Fax Number: City: Selection Factors: State: Patient Contact Information Contact Name:Concha Relationship:Son Address: Work Phone: City: [facility] Phone: State/Zip Code: Email: Financial Information Financial Class: Primary Plan Desc:MEDICARE INPATIENT Primary Plan Number:[id number] Secondary Plan Desc:AARP/MDR SUPPLEMENT Secondary Plan Number:[id number] Assessment Information [facility] CM Progress Note CM Note CM Note Notes: Pt lives in a home w/son, has a progressive neurological condition. CM waiting for PT/MONORAIL HOOKER trudy. Date Signed: 09/11/2017 04:49 PM Electronically Signed By:Leslee Wells RN [facility] CM Progress Note CM Note CM Note Notes: Met with patient regarding dc to rehab before going home. Patient has [employer] and needs needs assistance for ADLs but states was until recently, walking w/walker, driving to [facility] in [place] and exercising. His son lives with him and as he states, is a great assistance to him. Unfortunately he had a bad experience with a home health aid and is very afraid to work with therapists, fearing he will fall. CM advised to use some coping mechanisms such as deep breaths and having 2 people to hold him during therapy sessions. Also discussed with pt the importance of the therapists being able to assess his progress so rehab can review the referral. Pt was receptive and willing, CM will send referral to [facility]. Date Signed: 09/12/2017 12:48 PM Electronically Signed By:Leslee Wells RN [facility] Progress Note CM Note CM Note Notes: Pt declined by [facility] In rehab, referral sent to [facility] today. They have confirmed receipt, will run benefits and review, CM w/f. Date Signed: 09/13/2017 02:48 PM Electronically Signed By:Leslee Wells RN Intervention Information
--- NOTE | 2017-09-14 12:46 | GDS ---
[f rep st] DISCHARGE SUMMARY DISCHARGE DIAGNOSES: 1. Inclusion body myositis. 2. Advanced weakness. 3. Dysphagia. 4. Elevated troponin. 5. Bilateral lower extremity edema. 6. Gastroesophageal reflux disease. 7. Macrocytosis. CONSULTATIONS: Dr. Almendarez of Neurology. STUDIES AND PROCEDURES: 1. Video swallow. 2. Echocardiogram. PHYSICAL EXAM: GENERAL: The patient is alert. VITAL SIGNS: Afebrile at 36.7, pulse is 92, respira tory rate is 14, blood pressure is 108/87, he is saturating 93% on 2 L. I have seen and evaluated the patient on the day of discharge. HOSPITAL COURSE: The patient is a 81-year-old male, who presented to the hospital with complaints of weakness. 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 He is fol lowed by Dr. Almendarez of Neurology in the outpatient setting. During this hospitalization, he has b een evaluated by Physical Therapy, as well as Occupational Therapy and Speech Therapy. It is noted t hat there is no treatment for the patient's condition. His hope is to retain the strength that he kauffman s and potentially gain some generalized strength back during rehabilitation. He will continue on his regular dose of prednisone for treatment. 2. Dysphagia. Speech Therapy evaluated the patient during this hospitalization. He is at risk for everything and continues to aspirate. He has been placed on restrictions and he will continue speech therapy in the outpatient setting. 3. Elevated troponin. Echocardiogram appears to be stable. No further intervention warranted at th is time. 4. Bilateral lower extremity edema. This is chronic and related to the patient's poor mobility. 5. Macrocytosis. B12 and folate are normal. DISPOSITION: The patient will be discharged to [facility] for potential strengthening and rehab. I reviewed the patient's disposition with Dr. Ronald Almendarez, as well as the case management rn , who both are in agreement with this plan. PENDING STUDIES: None. FOLLOWUP: Will be with Dr. Almendarez. DISCHARGE MEDICATIONS: Please refer to EMR form. I have not adjusted the patient's previously presc ribed home medications to the best of my knowledge. BILLING: I have spent greater than 35 minutes in the care, coordination, and management of the chito nt's disposition. /[id number]/MODL
--- NOTE | 2017-09-14 12:46 | GDS ---
[f rep st] DISCHARGE SUMMARY DISCHARGE DIAGNOSES: 1. Inclusion body myositis. 2. Advanced weakness. 3. Dysphagia. 4. Elevated troponin. 5. Bilateral lower extremity edema. 6. Gastroesophageal reflux disease. 7. Macrocytosis. CONSULTATIONS: Dr. Almendarez of Neurology. STUDIES AND PROCEDURES: 1. Video swallow. 2. Echocardiogram. PHYSICAL EXAM: GENERAL: The patient is alert. VITAL SIGNS: Afebrile at 36.7, pulse is 92, respira tory rate is 14, blood pressure is 108/87, he is saturating 93% on 2 L. I have seen and evaluated the patient on the day of discharge. HOSPITAL COURSE: The patient is a 81-year-old male, who presented to the hospital with complaints of weakness. 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 He is fol lowed by Dr. Almendarez of Neurology in the outpatient setting. During this hospitalization, he has b een evaluated by Physical Therapy, as well as Occupational Therapy and Speech Therapy. It is noted t hat there is no treatment for the patient's condition. His hope is to retain the strength that he kauffman s and potentially gain some generalized strength back during rehabilitation. He will continue on his regular dose of prednisone for treatment. 2. Dysphagia. Speech Therapy evaluated the patient during this hospitalization. He is at risk for everything and continues to aspirate. He has been placed on restrictions and he will continue speech therapy in the outpatient setting. 3. Elevated troponin. Echocardiogram appears to be stable. No further intervention warranted at th is time. 4. Bilateral lower extremity edema. This is chronic and related to the patient's poor mobility. 5. Macrocytosis. B12 and folate are normal. DISPOSITION: The patient will be discharged to [facility] for potential strengthening and rehab. I reviewed the patient's disposition with Dr. Ronald Almendarez, as well as the shelter case manager , who both are in agreement with this plan. PENDING STUDIES: None. FOLLOWUP: Will be with Dr. Almendarez. DISCHARGE MEDICATIONS: Please refer to EMR form. I have not adjusted the patient's previously presc ribed home medications to the best of my knowledge. BILLING: I have spent greater than 35 minutes in the care, coordination, and management of the chito nt's disposition. /[id number]/MODL
[2017-09-14] MEDS: CHOLECALCIFEROL PO SCH (14:07)
[2017-09-14] MEDS: [UNRECOGNIZED DRUG - OTHER] PO SCH (14:07)
[2017-09-14] MEDS: MAGNESIUM CITRATE PO SCH (14:07)
== END 2017-09-14 14:25 | DRG 547 ==
LOC: EDUNIT# → F2W 23:10 → F3E 09-11 08:51
PROVIDERS: ADMIT Internal Medicine; ATTEND Internal Medicine
CPT/HCPCS: 82607-90; 92526-GN; 92610-GN; 92611-GN; 97110-GO; 97110-GP; 97162-GP; 97166-GO; 97530-GO; 97530-GP; 97535-GO; G8978-GP-CM; G8979-GP-CJ; G8987-GO-CL; G8988-GO-CJ; G8996-GN-CK; G8997-GN-CI; G8998-GN-CJ; J1650